=== PATIENT | male | born 1965 | race Caucasian/White ===

== ENCOUNTER 2023-10-11 09:04 | Emergency (ER) | payer BC ==
[~2023-10-11] VITALS: Ht 180.3 cm; Wt 79.3 kg
[2023-10-11 09:21] VITALS: BP 170/98; PULSE 76; RESP 18; TEMP 98.7; O2SAT 98
== END 2023-10-11 11:39 | disposition left against medical advice (07) ==
LOC: ER 09:06
DX: N39.0 Urinary tract infection, site not specified (principal); Z53.21 Procedure and treatment not carried out due to patient leaving prior to being seen by health care provider
CPT/HCPCS: 99281